=== PATIENT | male | born 1980 | race Caucasian/White ===

== ENCOUNTER 2018-04-01 18:07 | Emergency (ER) | payer SELFPAY ==
[2018-04-01 18:08] VITALS: BP 137/79; PULSE 106; RESP 18; TEMP 36.9; O2SAT 97; BMI 31.7
[2018-04-01] MEDS: diazePAM 5 MG Tablet PO (19:00)
--- NOTE | 2018-04-01 19:00 | ED.DCSUM_ITS ---
- ER Visit Summary Date of Service: 04/01/18 Chief Complaint: [Back pain] History of Present Illness: The patient is a 37 M [presents the emergency department complaint back pain times 2 weeks. Patient states that he has had some chronic issues with his neck and back and normally sees a chiropractor on a regular basis. Patient states that 2 weeks ago he was getting out of the shower and toweling off his head when he coughed really hard and developed a sharp pain in his low back. Patient states that he did pretty well and went to an amusement park after that with his kids however 3 days later he sneezed hard and had increased pain and discomfort in his right lower back. Patient's been seen by the chiropractor twice for this and has been adjusted but has had no relief. Patient was advised by chiropractor that he may have muscle spasm and follow-up with a physician if the adjustments did not help. Patient denies any pain rating down his legs. He denies any change in bowel or bladder function. He denies weakness the extremity. Patient states that at rest his pain is only about a 2 out of 10 however with movement such as sitting up or bending over he has severe pain is 10 out of 10. Denies urinary symptoms or fever. She denies recent illness.] Physical Examination: [HEENT-PERRLA, EOMI. Cranial nerves II through XII grossly intact. TMs clear. Mucous membranes moist. No adenopathy. Cardiovascular-regular rate and rhythm without murmur or ectopy Lungs-clear to auscultation, chest wall stable without crepitus or subcu emphysema Abdomen-normoactive bowel sounds, soft, nontender, no rebound or rigidity, no peritoneal signs. Back exam-patient has no tenderness over the thoracic or lumbar spine. Patient has no tenderness over the thoracic or lumbar paraspinal musculature. Patient describes the pain in his right lower lumbar region to the mid right buttock. Patient has negative straight leg raises. Deep tendon reflexes are plus 2 out of 4 bilaterally at the patella and Achilles. Patient has normal L5 extension bilaterally. Patient has normal sensation to light touch. Extremities-intact ?4, normal range of motion, normal pulses, atraumatic] Test Results: [None indicated] Emergency Department Course and Treatment: [Patient did not want anything for pain however he was given Valium 5 mg p.o.] Treatment Plan: [Patient will be given a prescription for Valium and he will use ibuprofen or Aleve as an anti-inflammatory. Patient does not want any narcotic pain medications.] Patient will follow up with his primary care physician within the next 3-5 days. Disposition: [Discharged home in stable condition] Impression: [Lumbar back pain] This note was generated with [employer] dictation software. It may contain incorrect words, spelling, and punctuation that were not noted in review of the chart prior to signing ED Disposition - Plan for ED Patient: Chief Complaint: Back Referrals: Stevan Brown MD [Primary Care Provider] -
--- NOTE | 2018-04-01 19:00 | ED.DEP ---
ED Disposition - Plan for ED Patient: Chief Complaint: Back Instructions: ED Spasm Back No Trauma Prescriptions: Diazepam [Valium] 5 mg PO TID PRN #14 tab PRN Reason: Spasms Referrals: Stevan Brown MD [Primary Care Provider] - 3-5 Days
== END 2018-04-01 19:10 | disposition home or self-care (01) ==
LOC: ED 19:08
PROVIDERS: Emergency Provider Emergency Medicine
DX: M54.5 Low back pain (principal); Z72.0 Tobacco use
CPT/HCPCS: 99283

== ENCOUNTER 2018-04-03 16:27 | Emergency (ER) | payer SELFPAY ==
[2018-04-03 16:28] VITALS: BP 133/97; PULSE 89; RESP 22; TEMP 36.1; O2SAT 97; BMI 31.0
[2018-04-03] MEDS: Ketorolac 60 MG/2 ML Vial IM (16:53)
[2018-04-03] MEDS: Orphenadrine 60 MG/2 ML Ampul IM (16:53)
[2018-04-03] MEDS: predniSONE 20 MG Tablet 60 MG PO (16:53)
--- NOTE | 2018-04-03 16:55 | RAD_ITS ---
STUDY: X-RAY - LUMBAR SPINE REASON FOR EXAM: Male, 37 years old. Low back pain for 2 weeks worse starting last night TECHNIQUE: 3 view(s) of the lumbar spine were obtained. COMPARISON: None FINDINGS: There is straightening of the normal lumbar lordosis. There is no substantial scoliosis. There is a normal alignment of the vertebrae. There is multilevel endplate spondylosis of the lumbar vertebrae. There is loss of disc space at multiple levels, most conspicuous at L4-L5 and L5-S1. There is no demonstrated fracture. The soft tissue structures are unremarkable. RAD/Lumbar Spine 2 or 3 Views IMPRESSION: 1. Degenerative disc disease and spondylosis, as above. 2. Straightening of the normal lumbar lordosis could be positional artifact or related to muscular spasm. Electronically Signed: Carlos Espinosa MD at 17:15 EST , Service support ,
--- NOTE | 2018-04-03 17:33 | ED.VISSUMM ---
- ER Visit Summary Date of Service: 04/03/18 Chief Complaint: Back pain History of Present Illness: The patient is a 37 M who presents with back pain that became worse today. Patient was seen here 2 days ago and was diagnosed with a lumbar strain. Patient was given a prescription for Valium which helped initially. Patient states the pain became worse again today. Patient states he has been taking ibuprofen which has not helped. Patient states the pain radiates down his right leg. Patient denies any color bladder changes. Patient does admit to some numbness and tingling down his right leg. Patient states his pain is worse with movement. Physical Examination: Vital signs are stable. Patient is afebrile. Patient is in no acute distress. Oral mucosa is pink and moist. Neck is supple. Trachea is midline. There is no JVD noted. Musculoskeletal exam reveals tenderness over the right lumbar paraspinal area and sciatic notch. Range of motion was limited in all motions of the lumbar spine secondary to pain. There is back and right leg pain with straight leg raising on the right at approximately 45 degrees. Strength is 5/5 bilaterally. There are no sensory deficits noted. Deep tendon reflexes are 2+/4 bilaterally. Test Results: X-rays of the lumbar spine were obtained. There are degenerative changes. There is no acute fracture or spondylolisthesis. Covered by the radiologist and reviewed by myself. Emergency Department Course and Treatment: Patient was given injections of Toradol and Norflex here. Patient was given a dose of prednisone. Patient was subsequently given a dose of morphine subcu. Patient was still complaining of severe low back pain but was able to move easier on reevaluation. Patient was given a repeat dose of subcu morphine. Patient was given a prescription for prednisone. Patient was instructed to continue his Valium and ibuprofen as previously prescribed. Patient was instructed to follow-up with his primary care physician in 5-7 days. Patient understood and was agreeable with the plan. All questions were answered. Disposition: Discharge home Impression: Sciatica This note was generated with [employer] dictation software. It may contain incorrect words, spelling, and punctuation that were not noted in review of the chart prior to signing ED Disposition - Plan for ED Patient: Disposition: Home or Assisted Living Chief Complaint: Back Diagnosis: Sciatica of right side Instructions: ED Sciatica Prescriptions: predniSONE tablet 60 mg PO DAILY #15 tab Referrals: Stevan Brown MD [Primary Care Provider] -
[2018-04-03] MEDS: morphine 10 MG/ML Syringe 4 MG SC ×2 (17:53→19:19)
[2018-04-03 19:21] VITALS: PULSE 80; RESP 18; O2SAT 98
== END 2018-04-03 19:22 | disposition home or self-care (01) ==
PROVIDERS: Emergency Provider Emergency Medicine
DX: M54.30 Sciatica, unspecified side (principal); F17.210 Nicotine dependence, cigarettes, uncomplicated
CPT/HCPCS: 72100; 96372; 99283